=== PATIENT | female | born 1985 | race African-American/Black ===

== ENCOUNTER 2020-07-30 16:07 | Emergency (ER) | payer OTHER ==
[~2020-07-30] VITALS: Ht 160 cm; Wt 82.6 kg
[2020-07-30] MEDS ORDERED: KEFLEX250 MG PO (18:09)
[2020-07-30] MEDS ORDERED: NORCO5 PO (18:09)
[2020-07-30] MEDS ORDERED: NAPROXEN250 MG PO (18:09)
[2020-07-30] MEDS ORDERED: ERYTHROMYCIN E3.5 G3 OPHTHALMIC (18:10)
[2020-07-30 18:11] VITALS: BP 131/90
== END 2020-07-30 18:11 | disposition home or self-care (01) ==
LOC: ER 16:07
DX: S90.851A Superficial foreign body, right foot, initial encounter (principal); H00.12 Chalazion right lower eyelid; W22.8XXA Striking against or struck by other objects, initial encounter; Y93.01 Activity, walking, marching and hiking; Y92.89 Other specified places as the place of occurrence of the external cause; Y99.9 Unspecified external cause status